=== PATIENT | male | born 1950 | race Caucasian/White ===

== ENCOUNTER 2019-11-10 08:20 | Outpatient (CLI) | payer MEDICARE, SELFPAY ==
[2019-11-10 09:05] LABS: Thyroid Stimulating Hormone 2.03 uIU/mL (0.27-4.20)
== END 2019-11-10 08:21 | disposition home or self-care (01) ==
LOC: LAB 08:24
PROVIDERS: Family Provider Internal Medicine; PCP Internal Medicine; Visit Provider Internal Medicine
DX: E03.9 Hypothyroidism, unspecified (principal)
CPT/HCPCS: 84443

== ENCOUNTER → 2021-02-05 15:20 | Outpatient (BNVA) | payer MEDICARE, SELFPAY | PROVIDERS: Family Provider Internal Medicine; PCP Internal Medicine; Visit Provider Internal Medicine | DX: I10 Essential (primary) hypertension (principal); E78.5 Hyperlipidemia, unspecified; E03.9 Hypothyroidism, unspecified; R61 Generalized hyperhidrosis | CPT/HCPCS: 80053; 80061; 83036; 84443 ==

== ENCOUNTER 2021-02-18 15:15 | Outpatient (CLI) | payer MEDICARE, SELFPAY ==
[2021-02-18 16:35] VITALS: BP 147/87; PULSE 125; RESP 20; TEMP 36.6; O2SAT 95
[2021-02-18 18:10] VITALS: BP 130/69; PULSE 98; RESP 16; O2SAT 94
--- NOTE | 2021-02-28 13:39 | DCPLANNER ---
manager relocation had message that patient received the monoclonal antibody infusion. manager relocation called patient to check on patient after he received the infusion. Patient stated that before the infusion that he felt good, he really did not have any symptoms. Patient did say that he felt really weak, but he did not have a fever, he did not have a cough and did not have a lot of symptoms. Patient stated that after the infusion, he is doing really good.
== END 2021-02-18 18:00 | disposition home or self-care (01) ==
LOC: OPS 07-15 12:36
PROVIDERS: PCP Internal Medicine; Visit Provider Nurse Practitioner Family
DX: U07.1 COVID-19 (principal)
CPT/HCPCS: 87426; 96365

== ENCOUNTER 2021-09-12 14:21 | Outpatient (CLI) | payer MEDICARE, SELFPAY ==
--- NOTE | 2021-09-12 14:30 | USCV_ITS ---
Liz Duarte Age: 71 Gender: M : 1950 Exam Date: 09/12/2021 14:40 Ordering Phys: Laz Stein DO Technologist: Tanika Abraham Exam Location: [facility] [place] Indication: NEW SWELLING 1 WEEK HISTORY: Swelling in Lt leg PROCEDURES: Venous duplex imaging was performed in only the left lower extremity. The following venous structures were evaluated: common femoral vein, profunda vein, proximal portion of the greater saphenous vein, superficial femoral vein, and the popliteal vein. In addition, the posterior tibial and peroneal trunk were evaluated. Serial compression, augmentation maneuvers, and spectral Doppler flow evaluation were performed. FINDINGS: Normal 2-D Doppler and augmentation and compressibility throughout the lower extremity venous structures. Additional imaging through the proximal calf veins also reveals no thrombus. Limited evaluation of the greater saphenous vein is patent with no thrombus.. CONCLUSIONS No evidence of left lower extremity DVT. PRELIM TO DR. GARCIA'S OFFICE AT TIME OF EXAM. LEFT MESSAGE ON NURSES VOICE MAIL. José Miguel Ford MD (Electronically Signed) Final Date: 12 September 2021 15:57 S
== END 2021-09-12 14:22 | disposition home or self-care (01) ==
LOC: RAD 14:24
PROVIDERS: PCP Internal Medicine; Visit Provider Family Medicine
DX: M79.89 Other specified soft tissue disorders (principal); R23.8 Other skin changes
CPT/HCPCS: 93971

== ENCOUNTER → 2022-06-02 13:36 | Outpatient (BNVA) | payer MEDICARE, SELFPAY | PROVIDERS: PCP Family Medicine; Visit Provider Family Medicine | DX: I10 Essential (primary) hypertension (principal); E03.9 Hypothyroidism, unspecified; E55.9 Vitamin D deficiency, unspecified; R73.9 Hyperglycemia, unspecified | CPT/HCPCS: 80053; 82306; 83036; 84443 ==

== ENCOUNTER → 2023-01-01 10:34 | Outpatient (BNVA) | payer MEDICARE, SELFPAY | PROVIDERS: PCP Family Medicine; Visit Provider Family Medicine | DX: E11.9 Type 2 diabetes mellitus without complications (principal); R53.83 Other fatigue; T14.8XXA Other injury of unspecified body region, initial encounter; E03.9 Hypothyroidism, unspecified; W57.XXXA Bitten or stung by nonvenomous insect and other nonvenomous arthropods, initial encounter | CPT/HCPCS: 80053; 80061; 82043; 83036; 84443; 86618; 86666; 86757 ==

== ENCOUNTER → 2023-01-23 13:09 | Outpatient (BNVA) | payer MEDICARE, SELFPAY | PROVIDERS: PCP Family Medicine; Visit Provider Family Medicine | DX: E11.9 Type 2 diabetes mellitus without complications (principal) | CPT/HCPCS: 82043 ==

== ENCOUNTER → 2023-04-07 08:39 | Outpatient (BNVA) | payer MEDICARE, SELFPAY | PROVIDERS: PCP Family Medicine; Visit Provider Nurse Practitioner Family | DX: L57.8 Other skin changes due to chronic exposure to nonionizing radiation (principal); D22.61 Melanocytic nevi of right upper limb, including shoulder; L57.0 Actinic keratosis | CPT/HCPCS: 17000; 99213 ==

== ENCOUNTER → 2023-04-24 11:39 | Outpatient (BNVA) | payer MEDICARE, SELFPAY | PROVIDERS: PCP Family Medicine; Visit Provider Family Medicine | DX: E11.9 Type 2 diabetes mellitus without complications (principal) | CPT/HCPCS: 83036 ==

== ENCOUNTER → 2023-08-11 15:20 | Outpatient (BNVA) | payer MEDICARE, SELFPAY | PROVIDERS: PCP Family Medicine; Visit Provider Family Medicine | DX: R10.9 Unspecified abdominal pain (principal) | CPT/HCPCS: 81000 ==

== ENCOUNTER → 2023-09-08 12:23 | Outpatient (BNVA) | payer MEDICARE, SELFPAY | PROVIDERS: PCP Family Medicine; Visit Provider Family Medicine | DX: E55.9 Vitamin D deficiency, unspecified (principal); E11.9 Type 2 diabetes mellitus without complications; E03.9 Hypothyroidism, unspecified; R79.89 Other specified abnormal findings of blood chemistry | CPT/HCPCS: 80053; 80061; 82306; 82607; 83036; 84443 ==

== ENCOUNTER → 2023-10-06 09:39 | Outpatient (BNVA) | payer MEDICARE, SELFPAY | PROVIDERS: PCP Family Medicine; Visit Provider Nurse Practitioner Family | DX: L57.0 Actinic keratosis (principal); L57.8 Other skin changes due to chronic exposure to nonionizing radiation; D22.61 Melanocytic nevi of right upper limb, including shoulder; L81.4 Other melanin hyperpigmentation | CPT/HCPCS: 99214 ==

== ENCOUNTER → 2023-12-09 13:22 | Outpatient (BNVA) | payer MEDICARE, SELFPAY | PROVIDERS: PCP Family Medicine; Visit Provider Family Medicine | DX: E11.9 Type 2 diabetes mellitus without complications (principal) | CPT/HCPCS: 80048; 83036 ==

== ENCOUNTER 2023-12-10 08:27 | Outpatient (CLI) | payer MEDICARE, SELFPAY ==
--- NOTE | 2023-12-10 08:36 | XR_ITS ---
WS: [id number] Exam: XR hip LT 2-3V wo/w pel* [id number] Date/Time of Exam: 12/10/2023 8:36 AM Reason For Exam: left hip pain No acute fracture or dislocation. Mild to moderate degenerative narrowing of the joint compartment. N ormal soft tissues. XR/XR hip LT 2-3V wo/w pel* [id number] IMPRESSION: 1. Degenerative changes. No fracture or dislocation.
== END 2023-12-10 08:28 | disposition home or self-care (01) ==
PROVIDERS: PCP Family Medicine; Visit Provider Family Medicine
DX: M16.12 Unilateral primary osteoarthritis, left hip (principal)
CPT/HCPCS: 73502

== ENCOUNTER 2023-12-18 09:17 | Outpatient (CLI) | payer MEDICARE, SELFPAY ==
--- NOTE | 2023-12-18 09:45 | USCV_ITS ---
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 Resting TBI of 1.21 on the right side and 1.0 on the left side CONCLUSIONS Normal resting ABIs and TBIs bilaterally No significant arterial obstruction, based on the above findings Dr Jace Schmitt MD FAC (Electronically Signed) Final Date: 18 December 2023 19:25 S
== END 2023-12-18 09:18 | disposition home or self-care (01) ==
PROVIDERS: PCP Family Medicine; Visit Provider Family Medicine
DX: I73.9 Peripheral vascular disease, unspecified (principal)
CPT/HCPCS: 93922

== ENCOUNTER 2024-02-15 06:39 | Emergency (ER) | payer MEDICARE, SELFPAY ==
[2024-02-15] VITALS (12 sets, daily range): BP systolic 169–183; BP diastolic 113–117; PULSE 68–93; RESP 16–24; TEMP 36.4; O2SAT 94–98; BMI 46.6
--- NOTE | 2024-02-15 06:48 | ECG_ITS ---
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 Measurements Intervals [place] Rate: 82 P: 88 ME: 204 QRS: -11 QRSD: 118 T: 87 QT: 417 QTc: 488 Interpretive Statements SINUS RHYTHM WITH FREQUENT VENTRICULAR PREMATURE COMPLEXES INDETERMINATE AXIS LOW QRS VOLTAGE IN PRECORDIAL LEADS [QRS DEFLECTION < 1.0 mV IN CHEST LEADS] INCOMPLETE RIGHT BUNDLE BRANCH BLOCK [90+ ms QRS DURATION, TERMINAL R IN V1/V2, 40+ ms S IN I/aVL/V4/V5/V6] ABNORMAL RHYTHM ECG Compared to ECG 05/12/2019 09:55:31 Indeterminate axis now present Incomplete right bundle-branch block now present Left-axis deviation no longer present Intraventricular conduction delay no longer present T-wave abnormality no longer present Electronically Signed On 02-15-2024 14:10:46 CDT by Sesar Rodarte M.D. [id number]
--- NOTE | 2024-02-15 06:50 | XR_ITS ---
WS: [id number] PORTABLE CHEST HISTORY: dyspnea/cough COMPARISON: 05/12/2019 Mildly hyperinflated lungs. Film obtained in lordotic projection. Areas of increased attenuation over the lower lung rocha would probably improve with better technique. Area of pneumonia or developing pneumonitis at the RIGHT lung base is not excluded. No pleural effusion or pneumothorax. Cardiac size: Moderately enlarged silhouette is exacerbated by positioning. Mediastinum/Aorta: Mild atherosclerosis aorta. Osteoarthritic changes at the AC joints and glenohumeral joints. XR/XR chest 1V portable [id number] IMPRESSION: 1. Chest evaluation is limited by lordotic positioning. 2. New area of opacification at the lung bases, RIGHT greater than LEFT. Devel oping pneumonia versus technical limitation. 3. Moderate cardiomegaly.
--- NOTE | 2024-02-15 06:51 | W.ED.CHESTPA ---
HPI - Chest Pain General: Chief Complaint: Chest Pain Stated Complaint: chest pains Time Seen by Provider: 02/15/24 06:50 History of Present Illness: 73-year-old male presents emergency room complaining of bilateral lower chest pain that occurred while at rest. He states he has had chest pain with exertion for some time and cannot really get an duration of time that this been going on. He does have some associated shortness of breath patient is morbidly obese and has a history of diabetes mellitus although he tells me it is well-controlled at this time. He has no known history of coronary disease he is hypertensive he states he took his antihypertensive this morning. Associated symptoms: Deny abdominal pain, dyspnea or fever(s) Review of Systems Const: Denies: fever(s) or chills Card: Reports: chest pain Resp: Denies: dyspnea GI: Denies: abdominal pain : Denies: dysuria, urinary frequency or urinary urgency Musc: Denies: neck pain or back pain Skin/Breast: Denies: rash PFSH ED PFSH: Medical History Morbid obesity Recurrent sinus infections Allergic rhinosinusitis PVD (peripheral vascular disease) HTN (hypertension) Hyperlipidemia Hypothyroidism, unspecified BPH (benign prostatic hyperplasia) Surgical History History of tonsillectomy History of cataract surgery History of hip replacement History of knee replacement procedure of right knee History of knee replacement procedure of left knee History of colonoscopy 01/03/19 - Sigmoid colon polyps Family History Mother , age 93, no problems No problems noted. Father , age 76, tobacco + alcohol No problems noted. 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 Physical Exam Const: GENERAL APPEARANCE: cooperative ORIENTATION/CONSCIOUSNESS: Yes awake, Yes oriented to person, Yes oriented to place and Yes oriented to time HENMT: COMMON NORMALS: normocephalic, atraumatic and hearing grossly normal bilaterally HEAD & SCALP: normocephalic and atraumatic Resp: COMMON NORMALS: normal respiratory effort, No retractions, No use of accessory muscles and clear to auscultation bilaterally AUSCULTATION: clear to auscultation bilaterally Cardio: COMMON NORMALS: regular rate, regular rhythm and No murmurs present (Cardio) RATE: regular rate RHYTHM: regular rhythm GI: COMMON NORMALS: Soft to palpation and No hepatosplenomegaly present AUSCULTATION: Yes normoactive bowel sounds PALPATION: Yes Soft to palpation, No Tenderness to palpation present (GI), No Guarding due to palpation present (GI) and Yes No hepatosplenomegaly present Extremity: COMMON NORMALS: normal to inspection, capillary refill normal, no clubbing, cyanosis or edema, no calf tenderness and no pedal edema Neuro: SENSORIUM/ORIENTATION: Yes oriented to person, Yes oriented to place and Yes oriented to time Skin: COMMON NORMALS: no rashes or lesions noted GENERAL SKIN EXAM: no rashes or lesions noted Course Vital Signs: Vital signs: Vital Signs Temperature 97.6 F 02/15/24 06:45 Pulse Rate 80 02/15/24 10:15 Respiratory Rate 16 02/15/24 08:00 Blood Pressure 169/117 02/15/24 08:00 Pulse Oximetry 94 02/15/24 10:15 Oxygen Delivery Me thod Room Air 02/15/24 08:16 MDM - Chest Pain Medical Decision Making Having atypical chest pain EKG does not show acute changes cardiac enzymes trended negative. Patient does have a small stone. It is questionable the way the CT report reads however he does have isolated hematuria as I believe this does reflect a stone. He has some discomfort in that region as well we will strain his urine gave him pain medications and nausea medicine start him on tamsulosin. Additionally we will set him up for an outpatient Lexiscan sestamibi stress test. Start him on baby aspirin daily and isosorbide mononitrate 30 mg daily. Return if has further problems. He also has some mild hyponatremia but is asymptomatic of this at this time this can be followed up with with his primary care doctor. Lab Data 02/15/24 08:09 02/15/24 08:09 Radiology Impressions Chest X-Ray 02/15/24 06:50 IMPRESSION: 1. Chest evaluation is limited by lordotic positioning. 2. New area of opacification at the lung bases, RIGHT greater than LEFT. Developing pneumonia versus technical limitation. 3. Moderate cardiomegaly. Abdomen/Pelvis CT 02/15/24 09:40 IMPRESSION: 1. Mild RIGHT perinephric stranding with no obstruction of the renal pelvis. Stranding has progressed since the prior study. The ureter is not dilated but in the very distal ureter there is a 2 mm focus which could be a very tiny stone. Correlate for possible pyelonephritis due to the increasing perinephric stranding. 2. Small amount of perinephric stranding around the LEFT kidney with no obstruction. 3. Cholelithiasis without acute cholecystitis. 4. Mild diverticular disease without acute diverticulitis. 5. Mild atherosclerosis aorta. 6. Moderate hiatal hernia. Laboratory Results WBC 13.70 10^3/uL (3.29-11.43) H 02/15/24 08:09 RBC 4.31 10^6/uL (3.85-5.65) 02/15/24 08:09 Hgb 13.30 g/dL (11.27-16.99) 02/15/24 08:09 Hct 39.4 % (37-53) 02/15/24 08:09 MCV 91.4 fl (82-101) 02/15/24 08:09 MCH 30.9 pg (27-33) 02/15/24 08:09 MCHC 33.8 g/dL (30-55) 02/15/24 08:09 RDW 12.3 % (12.1-15.1) 02/15/24 08:09 Plt Count 292 10^3/cmm (157-399) 02/15/24 08:09 MPV 10.5 fL (7.4-10.4) H 02/15/24 08:09 Neut % (Auto) 79.7 % 02/15/24 08:09 Lymph % (Auto) 13.5 % 02/15/24 08:09 Mclean % (Auto) 5.7 % 02/15/24 08:09 Eos % (Auto) 0.4 % 02/15/24 08:09 Baso % (Auto) 0.3 % 02/15/24 08:09 Neut # (Auto) 10.92 10^3/uL (1.8-7.7) H 02/15/24 08:09 Lymph # (Auto) 1.9 10^3/uL (0.8-4.8) 02/15/24 08:09 Mclean # (Auto) 0.8 10^3/uL (0.2-0.9) 02/15/24 08:09 Eos # (Auto) 0.1 10^3/uL (0.0-0.8) 02/15/24 08:09 Baso # (Auto) 0.0 10^3/uL (0.0-0.1) 02/15/24 08:09 Nucleated RBC % (auto) 0 % 02/15/24 08:09 Nucleated RBCs # 0.0 /100WBC 02/15/24 08:09 Sodium 127 mmol/L (136-145) L 02/15/24 08:09 Potassium 3.5 mmol/L (3.5-5.1) 02/15/24 08:09 Chloride 90 mmol/L (98-107) L 02/15/24 08:09 Carbon Dioxide 21 mmol/L (22-29) L 02/15/24 08:09 Anion Gap 19.5 (5-19) H 02/15/24 08:09 BUN 10 mg/dL (8-23) 02/15/24 08:09 Creatinine 0.6 mg/dL (0.7-1.2) L 02/15/24 08:09 GFR Calculation Not Reportable 02/15/24 08:09 Glucose 213 mg/dL (65-115) H 02/15/24 08:09 Calculated Osmolality 269 mOsm/kg (285-295) L 02/15/24 08:09 Calcium 9.1 mg/dL (8.5-10.5) 02/15/24 08:09 Total Bilirubin 0.4 mg/dL (0.15-1.2) 02/15/24 08:09 AST 19 U/L (0-40) 02/15/24 08:09 ALT 19 U/L (0-41) 02/15/24 08:09 Alkaline Phosphatase 100 U/L (40-130) 02/15/24 08:09 Troponin T Baseline 17 ng/L (0-15) H 02/15/24 08:09 Troponin T 120 Minute 18.74 ng/L (0-15) H 02/15/24 10:55 Delta Troponin T 1.74 ABS# (0-10) 02/15/24 10:55 Total Protein 6.8 g/dL (6.6-8.7) 02/15/24 08:09 Albumin 4.1 g/dL (3.5-5.2) 02/15/24 08:09 Globulin 2.7 g/dL (1.3-4.6) 02/15/24 08:09 Urine Color Yellow (Yellow) 02/15/24 07:27 Urine Appearance Clear (CLEAR) 02/15/24 07:27 Urine pH 5.5 (5-7) 02/15/24 07:27 Ur Specific [place] 1.016 (1.005-1.030) 02/15/24 07:27 Urine Protein Negative (Negative) 02/15/24 07:27 Urine Glucose (UA) Negative (Normal) 02/15/24 07:27 Urine Ketones Negative (Negative) 02/15/24 07:27 Urine Blood 1+ (Negative) A 02/15/24 07:27 Urine Nitrate Negative (Negative) 02/15/24 07:27 Urine Bilirubin Negative (Negative) 02/15/24 07:27 Urine Urobilinogen 0.2 mg/dL (Negative) 02/15/24 07:27 Ur Leukocyte Esterase Negative (Negative) 02/15/24 07:27 Urine RBC 11-20 /hpf (0-2) H 02/15/24 07:27 Urine WBC 0-5 /hpf (0-5) 02/15/24 07:27 Ur Squamous Epith Cells 0-5 /hpf (0-5) 02/15/24 07:27 Amorphous Sediment Not Reportable 02/15/24 07:27 Urine Bacteria None seen /hpf (NONE) 02/15/24 07:27 Hyaline Casts 0-4 /lpf H 02/15/24 07:27 All radiology interpretation(s) finalized by discharge EKG Data EKG 1: EKG interpretation date: 02/15/24 EKG interpretation time: 06:48 Interpretation: Sinus rhythm with PVCs. Rate 82 [place] interval 204. Incomplete bundle branch block no evidence of acute ST elevations Discharge Plan Discharge Patient Disposition: Home Clinical Impression: Atypical chest pain, Right nephrolithiasis, Hyponatremia Condition: Stable Prescriptions: New promethazine 25 mg tablet 25 mg PO Q6H PRN (Reason: nausea and vomiting) Qty: 20 0RF tamsulosin 0.4 mg capsule 0.4 mg PO DAILY Qty: 14 0RF aspirin 81 mg tablet,delayed release (DR/EC) 81 mg PO DAILY Qty: 30 0RF isosorbide mononitrate 30 mg tablet extended release 24 hr 30 mg PO DAILY Qty: 30 0RF No Action multivitamin Tablet 1 tab PO DAILY Contrave 8-90 mg tablet extended release 2 tab PO BID fexofenadine [Elina Allergy] 60 mg tablet 240 mg PO DAILY tamsulosin 0.4 mg capsule 0.4 mg PO DAILY Qty: 90 3RF Colace 100 mg Capsule 300 mg PO DAILY Afrin (oxymetazoline) 0.05 % [place],Non-Aerosol 2 spray INTRANASAL BEDTIME PRN (Reason: Congestion) Vitamin D3 125 mcg (5,000 unit) Tablet 125 mcg PO DAILY berberine chloride 500 mg Capsule 500 mg PO DAILY vitamin B complex Tablet 1 tab PO DAILY vitamin E 268 mg (400 unit) Capsule 268 mg PO DAILY levothyroxine 175 mcg tablet 175 mcg PO DAILY spironolacton-hydrochlorothiaz 25-25 mg tablet 2 tab PO DAILY pentoxifylline 400 mg tablet extended release 400 mg PO TID montelukast 10 mg tablet 10 mg PO DAILY levocetirizine 5 mg tablet 5 mg PO DAILY Discharge Orders: Discharge ED (Routine); Ordered 02/15/24 Ordered By: Lamonte Covarrubias Referrals: Rubi Weathers MD [Primary Care Provider] - Discharge Diet: Usual diet Discharge Activity: Limit activity as instructed Patient Instructions: Opioid Safety, Pain Management Activity Restrictions/Additional Instructions: Thank you for choosing [facility] for your healthcare needs today. It is very important that you follow up as instructed or that you return to the Emergency Department should you have concerns or if your condition changes or worsens in any way. You were seen in the emergency room with complaint of chest discomfort and flank pain. Your cardiac enzymes are negative and EKG did not show any acute changes. Urine showed blood in the urine CT shows a right distal ureteral stone. Recommend you strain your urine to evaluate for kidney stone. Will have you strain your urine to start on tamsulosin pain medications and nausea medicines. Additionally case finishing machine adjuster will make arrangements for you to have a follow-up cardiac stress test. Coding Level of Care Code ED Medical Sales Associate for Prachi Asher
[2024-02-15] MEDS: aspirin 81 mg Chew Tablet 324 MG PO (07:28)
[2024-02-15 07:43] LABS: Charge for UA Resulting for Rev
[2024-02-15 08:34] LABS: Basophils % 0.3 %; Eosinophils # 0.1 10^3/uL (0.0-0.8); Eosinophils % 0.4 %; Hematocrit 39.4 % (37-53); Lymphocytes # 1.9 10^3/uL (0.8-4.8); Lymphocytes % 13.5 %; Mean Corpuscular HGB Conc 33.8 g/dL (30-55); Mean Corpuscular Hemoglobin 30.9 pg (27-33); Mean Corpuscular Volume 91.4 fl (82-101); Mean Platelet Volume 10.5 fL (7.4-10.4); Monocytes # 0.8 10^3/uL (0.2-0.9); Monocytes % 5.7 %; Neutrophils # 10.92 10^3/uL (1.8-7.7); Neutrophils % 79.7 %; Nucleated Red Blood Cells % 0 %; Platelet Count 292 10^3/cmm (157-399); Red Blood Count 4.31 10^6/uL (3.85-5.65); Red Cell Distribution Width 12.3 % (12.1-15.1)
--- NOTE | 2024-02-15 08:52 | ECG_ITS ---
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 Measurements Intervals [place] Rate: 72 P: 85 UT: 225 QRS: -15 QRSD: 114 T: 83 QT: 437 QTc: 478 Interpretive Statements SINUS RHYTHM WITH FIRST DEGREE AV BLOCK WITH OCCASIONAL VENTRICULAR PREMATURE COMPLEXES INDETERMINATE AXIS LOW QRS VOLTAGE IN PRECORDIAL LEADS [QRS DEFLECTION < 1.0 mV IN CHEST LEADS] INCOMPLETE RIGHT BUNDLE BRANCH BLOCK [90+ ms QRS DURATION, TERMINAL R IN V1/V2, 40+ ms S IN I/aVL/V4/V5/V6] Compared to ECG 02/15/2024 06:48:11 First degree AV block now present Electronically Signed On 02-15-2024 14:17:01 CDT by Sesar Rodarte M.D. [id number]
[2024-02-15 08:54] LABS: Bilirubin Urine Negative (Negative); Blood Urine 1+ (Negative); Glucose Urine UA Negative (Normal); Ketones Urine Negative (Negative); Leukocyte Esterase Urine Negative (Negative); Nitrate Urine Negative (Negative); Protein Urine Negative (Negative); Specific Gravity, Urine 1.016 (1.005-1.030); Urine Appearance Clear (CLEAR); Urine Color Yellow (Yellow); Urobilinogen Urine 0.2 mg/dL (Negative); pH Urine 5.5 (5-7)
[2024-02-15 08:54] LABS: Alanine Aminotransferase 19 U/L (0-41); Albumin Level 4.1 g/dL (3.5-5.2); Alkaline Phosphatase 100 U/L (40-130); Anion Gap 19.5 (5-19); Aspartate Amino Transferase 19 U/L (0-40); Blood Urea Nitrogen 10 mg/dL (8-23); Calcium 9.1 mg/dL (8.5-10.5); Carbon Dioxide 21 mmol/L (22-29); Chloride 90 mmol/L (98-107); Globulin 2.7 g/dL (1.3-4.6); Glucose 213 mg/dL (65-115); Osmolality Calculated 269 mOsm/kg (285-295); Potassium 3.5 mmol/L (3.5-5.1); Sodium 127 mmol/L (136-145); Total Bilirubin 0.4 mg/dL (0.15-1.2); Total Protein 6.8 g/dL (6.6-8.7)
[2024-02-15 08:55] LABS: Troponin(5th) Baseline 17 ng/L (0-15)
[2024-02-15 08:59] LABS: Creatinine Clr Calc Pharmacy 103.9445
[2024-02-15 09:07] LABS: Bacteria Urine None Seen /hpf; Hyaline Casts Urine 0-4 /lpf; Squamous Epithelial Cell Urine 0-5 /hpf (0-5); WBC Urine 0-5 /hpf (0-5)
--- NOTE | 2024-02-15 09:40 | CT_ITS ---
WS: [id number] CT ABDOMEN AND PELVIS NONCONTRAST HISTORY: flank pain, RIGHT TECHNIQUE: Imaging performed through the abdomen and pelvis. Coronal and sagittal reformats are submi tted. All CT scans at [facility] use at least one of these dose optimization techniques: auto mated exposure control; mA and/or kV adjustment per patient size (includes targeted exams where dose is matched to clinical indication); or iterative reconstruction. DLP: 1487.73 mGy.cm COMPARISON: 01/06/2019 Lower thorax: Mild dependent changes at the lung bases. Micronodule LEFT lung base. No pneumonia. Mod erate cardiomegaly. Moderate hiatal hernia. Liver: Normal liver with hepatic steatosis. Gallbladder: Cholelithiasis without acute cholecystitis. No wall thickening or pericholecystic fluid. Pancreas: Mild fatty replacement. Spleen: Normal. Adrenal glands: Normal. No mass. Right kidney: Mild perinephric stranding. There is no obstruction. No definite renal stones. There ma y be a very tiny 2 mm calcification in the distal LEFT ureter seen only on one image. Not causing any significant hydronephrosis. Left kidney: Mild perinephric stranding. No obstruction. Normal ureter. Aorta: Mild atherosclerosis abdominal aorta with no aneurysm. No free fluid, intraperitoneal air or significant lymphadenopathy. GI tract: Stomach is well distended with fluid. No small bowel obstruction. Appendix is normal. No co katarzyna obstruction or evidence for acute diverticulitis. There are few diverticula scattered throughout the distal colon. Abdominal wall: Negative. No hernia. Pelvis: No free fluid. Minimally distended urinary bladder. Osseous structures: Advanced degenerative spondylitic changes throughout the lumbar spine. L4 anterol isthesis by 5 mm. Prior RIGHT hip arthroplasty. CT/CT kidney stone [id number] IMPRESSION: 1. Mild RIGHT perinephric stranding with no obstruction of the renal pelvis. S tranding has progressed since the prior study. The ureter is not dilated but in the very distal ureter there is a 2 mm focus which could be a very tiny stone. Correlate for possible pyelonephritis due to the increasing perinephric strand ing. 2. Small amount of perinephric stranding around the LEFT kidney with no obstru ction. 3. Cholelithiasis without acute cholecystitis. 4. Mild diverticular disease without acute diverticulitis. 5. Mild atherosclerosis aorta. 6. Moderate hiatal hernia.
[2024-02-15 11:24] LABS: Troponin 5 2HR 18.74 ng/L (0-15); Troponin 5 2HR Delta 1.74 ABS# (0-10)
--- NOTE | 2024-02-18 09:32 | DCPLANNER ---
faxed outpatient order to scheduling for er f/u
== END 2024-02-15 12:35 | disposition home or self-care (01) ==
PROVIDERS: Emergency Provider Family Medicine; PCP Family Medicine
DX: R07.89 Other chest pain (principal); N20.0 Calculus of kidney; E87.1 Hypo-osmolality and hyponatremia; I45.10 Unspecified right bundle-branch block; I10 Essential (primary) hypertension; E66.01 Morbid (severe) obesity due to excess calories; Z68.42 Body mass index [BMI] 45.0-49.9, adult
CPT/HCPCS: 36415; 71045; 74176; 80053; 81003; 81015; 84484; 85025; 93005; 99285

== ENCOUNTER → 2024-02-23 13:24 | Outpatient (BNVA) | payer MEDICARE, SELFPAY | PROVIDERS: PCP Family Medicine; Visit Provider Family Medicine | DX: E11.9 Type 2 diabetes mellitus without complications (principal); R31.9 Hematuria, unspecified | CPT/HCPCS: 80048; 81003; 83036 ==

== ENCOUNTER 2024-03-03 09:11 | Outpatient (CLI) | payer MEDICARE, SELFPAY ==
--- NOTE | 2024-03-03 09:40 | ECG_ITS ---
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 Interpretive Statements NAME OF STUDY: LEXISCAN SESTAMIBI STRESS TEST INDICATION: [Atypical Chest Pain, ] Procedure: At the baseline, the blood pressure was 120/86 mmHg with a heart rate of 146 bpm. The electrocardiogram showed normal sinus rhythm, incomplete right bundle branch block, with normal ST and T's. The Lexiscan was infused over a period of 20 seconds. A total of 0.4 mg of Lexiscan was infused. The stress phase was continued for a total of 5 minutes. Heart rate was at the end of stress phase was 67 bpm and a blood pressure of 108/79 mmHg. The EKG at the peak infusion revealed normal sinus rhythm with no significant ST-T wave changes. Sestamibi was injected 20 seconds after the Lexiscan infusion. Blood pressure at the end of recovery phase was 112/75 mmHg with a heart rate of 66 bpm. Conclusion: 1. Normal EKG response to Lexiscan infusion 2. No Lexiscan induced chest pain or cardiac arrhythmia. 3. Normal blood pressure and heart rate response. 4. Sestamibi/sestamibi perfusion scan pending; see separate report. Electronically Signed On 03-05-2024 9:50:43 CDT by Fernando Kramer M.D. [id number]
[2024-03-03 09:41] VITALS: BMI 49.5
[2024-03-03] MEDS: regadenoson 0.4 Mg/5 ml Syringe IVP (10:39)
[2024-03-03 10:57] VITALS: BP 111/79; PULSE 63
== END 2024-03-03 09:12 | disposition home or self-care (01) ==
PROVIDERS: PCP Family Medicine; Visit Provider Family Medicine
DX: R07.89 Other chest pain (principal)
CPT/HCPCS: 36415; 78452; 93017; 96374; A9500; J2785

== ENCOUNTER 2024-03-07 06:51 | Outpatient (CLI) | payer MEDICARE, SELFPAY ==
[2024-03-07 06:57] VITALS: BMI 49.5
--- NOTE | 2024-03-07 07:01 | ECG_ITS ---
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 Interpretive Statements LEXISCAN: Procedure: At the baseline, the blood pressure was 101/69 mmHg with a heart rate of 64 bpm. The electrocardiogram showed normal sinus rhythm, incomplete right bundle branch block with normal ST and T's. The Lexiscan was infused over a period of 20 seconds. A total of 0.4 mg of Lexiscan was infused. The stress phase was continued for a total of 5 minutes. Heart rate was at the end of stress phase was 66 bpm and a blood pressure of 95/66 mmHg. The EKG at the peak infusion revealed normal sinus rhythm with no significant ST-T wave changes. Sestamibi was injected 20 seconds after the Lexiscan infusion. Blood pressure at the end of recovery phase was 103/70 mmHg with a heart rate of 67 bpm. Conclusion: 1. Normal EKG response to Lexiscan infusion 2. No Lexiscan induced chest pain or cardiac arrhythmia. 3. Normal blood pressure and heart rate response. 4. Sestamibi/sestamibi perfusion scan pending; see separate report. Electronically Signed On 03-11-2024 19:33:46 CDT by Fernando Kramer M.D. [id number]
--- NOTE | 2024-03-07 07:02 | NMCV_ITS ---
NM sharon perf SPECT r/s* [id number] Duarte Hill Age: 74 Gender: M : 1950 Exam Date: 03/07/2024 07:30 Ordering Phys: Lamonte Covarrubias DO Technologist: FIDEL Beatty Exam Location: [facility] Indications: Atypical chest pain STRESS TEST Please see separate stress test report in [facility] for full findings IMAGE PROTOCOL Rest/Stress 1 Lexiscan Day Radiopharmaceutical Dose (mCi) Administration Site Administered by Rest: Tc-99m 10.8 IV FIDEL Beatty Sestamibi Stress:Tc-99m 31.7 IV FIDEL Beatty Sestamibi Rest: 03/07/2024 60 Discovery 630 Stress: 03/07/2024 30 Discovery 630 0.4mg Lexiscan. Images obtained in supine and prone position. SPECT RESULTS Technical Quality: Good Raw Data Analysis: Soft tissue attenuation Image Corrections: No attenuation or motion correction applied Summed Stress Score: 23 Summed Rest Score: 12 Summed Difference Score: 12 PERFUSION FINDINGS There is a large area of mostly fixed perfusion defect noted in the inferior wall. This is consistent with large sized prior infarct with some dai-infarct ischemia in RCA territory. There is a large sized partially reversible perfusion defect noted in anterior, apical and inferolateral michael. Improvement seen on prone imaging. Large areas of prior infarct with dai-infarct ischemia vs attenuation artifact. Clinical correlation required. FUNCTIONAL RESULTS (calculated via Gated SPECT) Stress Image LV EF (%): 42 Stress EDV (mL):209 TID: 1.2 Stress ESV (mL):121 FUNCTIONAL FINDINGS: LV systolic function is mildly reduced with EF of 42%. TID ratio is elevated at 1.2 IMPRESSIONS 1. Abnormal myocardial perfusion imaging with large area of prior infarct with some dai-infarct ischemia seen in the RCA territory. 2. Large area of prior infarct with dai-infarct ischemia seen in apical, anterior and inferolateral michael. Attenuation artifact cannot be ruled out. Clinical correlation is required. 3. LV systolic function is mildly reduced with EF of 42%. TID ratio is elevated. This may represent subendocardial ischemia / multivessel coronary artery disease. Fernando Kramer MD (Electronically Signed) Final Date: 07 March 2024 10:42 S
[2024-03-07] MEDS: regadenoson 0.4 Mg/5 ml Syringe IVP (07:05)
[2024-03-07 07:30] VITALS: BP 101/69; PULSE 67
== END 2024-03-07 06:52 | disposition home or self-care (01) ==
PROVIDERS: PCP Family Medicine; Visit Provider Family Medicine
DX: R07.89 Other chest pain (principal); R94.39 Abnormal result of other cardiovascular function study
CPT/HCPCS: 78452; 93017; 96374; A9500; J2785

== ENCOUNTER → 2024-04-07 08:17 | Outpatient (BNVA) | payer MEDICARE, SELFPAY | PROVIDERS: PCP Family Medicine; Visit Provider Nurse Practitioner Family | DX: D22.61 Melanocytic nevi of right upper limb, including shoulder (principal); L57.0 Actinic keratosis; T14.8XXA Other injury of unspecified body region, initial encounter; X58.XXXA Exposure to other specified factors, initial encounter; L57.8 Other skin changes due to chronic exposure to nonionizing radiation; L81.4 Other melanin hyperpigmentation | CPT/HCPCS: 17000; 99214 ==

== ENCOUNTER → 2024-05-02 14:31 | Outpatient (BNVA) | payer MEDICARE, SELFPAY | PROVIDERS: PCP Family Medicine; Visit Provider Internal Medicine Cardiovascular Disease | DX: R94.39 Abnormal result of other cardiovascular function study (principal); R06.02 Shortness of breath; M79.89 Other specified soft tissue disorders; I10 Essential (primary) hypertension; E78.2 Mixed hyperlipidemia; E11.9 Type 2 diabetes mellitus without complications; E03.9 Hypothyroidism, unspecified; E66.01 Morbid (severe) obesity due to excess calories; Z68.42 Body mass index [BMI] 45.0-49.9, adult; Z87.891 Personal history of nicotine dependence | CPT/HCPCS: 36415; 80048; 83880; 99204 ==

== ENCOUNTER 2024-05-24 10:53 | Emergency (ER) | payer MEDICARE, SELFPAY ==
[2024-05-24] VITALS (7 sets, daily range): BP systolic 148–178; BP diastolic 78–106; PULSE 79–101; RESP 17–20; TEMP 36.7; O2SAT 91–98; BMI 45.1
--- NOTE | 2024-05-24 10:55 | XR_ITS ---
WS: [id number] PORTABLE CHEST HISTORY: chest pain COMPARISON: 02/15/2024 Mild dependent changes at the lung bases. Minimal atelectasis at the lung bases. No pneumonia. Simila r appearance to the prior study. No pleural effusion or pneumothorax. Cardiac size: Mildly enlarged cardiac silhouette. Mediastinum/Aorta: Normal mediastinum. Bilateral osteoarthritic changes at the glenohumeral joints. XR/XR chest 1V portable [id number] IMPRESSION: 1. No pneumonia. 2. Mild dependent changes at the lung bases. 3. Mild cardiomegaly, unchanged.
--- NOTE | 2024-05-24 10:55 | ECG_ITS ---
[facility] Pat Name: Duarte Hill Department: Room: Gender: Male Medical Policy Specialist: : 1950 Requested By: Sharri Atkinson Order Number: [id number] Fredo MD: Jace Schmitt M.D. Measurements Intervals [place] Rate: 93 P: 101 SD: 212 QRS: -43 QRSD: 118 T: 78 QT: 368 QTc: 459 Interpretive Statements Normal sinus rhythm with frequent PVCs LEFT AXIS DEVIATION [QRS AXIS < -30] INCOMPLETE RIGHT BUNDLE BRANCH BLOCK [90+ ms QRS DURATION, TERMINAL R IN V1/V2, 40+ ms S IN I/aVL/V4/V5/V6] Compared to ECG 02/15/2024 08:52:13 Left-axis deviation now present Sinus rhythm no longer present First degree AV block no longer present Indeterminate axis no longer present Electronically Signed On 05-26-2024 21:41:32 MANAGER FINANCIAL REPORTING by Jace Schmitt M.D. [id number]
--- NOTE | 2024-05-24 10:59 | US_ITS ---
WS: [id number] RIGHT UPPER QUADRANT ULTRASOUND HISTORY: ruq pain COMPARISON: None available. Liver: 13.3 cm in length. Normal size liver and echogenicity. No bile duct dilatation or mass. Portal Vein: Normal hepatopetal flow with monophasic waveform. Gallbladder: Nondistended gallbladder with stones. No pericholecystic fluid or gallbladder wall thick ening. There is also small amount of sludge within the gallbladder. CBD: 0.5 cm Pancreas: Poorly visualized. Right kidney: 11.3 cm in length. Normal size and echogenicity. No hydronephrosis or mass. Aorta and IVC: Unremarkable abdominal aorta and IVC. No ascites. Stomach is markedly distended with fluid. US/US gall bladder [id number] IMPRESSION: 1. Cholelithiasis and sludge within the gallbladder. No Cruz sign or pericho lecystic fluid. No bile duct obstruction. 2. Mild hepatic steatosis. 3. Fluid distended stomach.
--- NOTE | 2024-05-24 11:00 | ED_ITS ---
HPI - Abdominal Pain 2 General: Chief Complaint: Abdominal Pain Stated Complaint: Chest pain Time Seen by Provider: 05/24/24 10:56 Source: patient Mode of arrival: ambulatory Limitations: no limitations History of Present Illness: This 74-year-old male states been having right upper quadrant abdominal pain this morning states the pain is sharp pain worse with palpation he is denies any nausea or vomiting. His chief complaint was chest pain but he is currently not having any chest pain at all on his right upper quadrant of his abdomen. Denies any history of any issues with his gallbladder. Denies any shortness of breath. Associated Symptoms: Denies chills, diarrhea, dysuria, fever(s), nausea and vomiting Related Data Home Medications Medication Instructions Recorded Confirmed multivitamin 1 tab PO DAILY 11/04/19 05/24/24 fexofenadine 60 mg tablet (Elina 240 mg PO DAILY 06/02/22 05/24/24 Allergy) berberine chloride 500 mg capsule 500 mg PO DAILY 02/15/24 05/24/24 cholecalciferol (vitamin D3) 125 125 mcg PO DAILY 02/15/24 05/24/24 mcg (5,000 unit) tablet (Vitamin D3) docusate sodium 100 mg capsule 300 mg PO DAILY 02/15/24 05/24/24 (Colace) levocetirizine 5 mg tablet 5 mg PO DAILY 02/15/24 05/24/24 levothyroxine 175 mcg tablet 175 mcg PO DAILY 02/15/24 05/24/24 montelukast 10 mg tablet 10 mg PO DAILY 02/15/24 05/24/24 oxymetazoline 0.05 % nasal spray 2 spray intranasal BEDTIME PRN 02/15/24 05/24/24 (Afrin (oxymetazoline)) Congestion pentoxifylline 400 mg 400 mg PO TID 02/15/24 05/24/24 tablet,extended release spironolactone 25 2 tab PO DAILY 02/15/24 05/24/24 mg-hydrochlorothiazide 25 mg tablet vitamin B complex 1 tab PO DAILY 02/15/24 05/24/24 vitamin E 268 mg (400 unit) capsule 268 mg PO DAILY 02/15/24 05/24/24 promethazine 25 mg tablet 25 mg PO Q6H PRN Nausea 05/24/24 05/24/24 Previous Rx's Medication Instructions Recorded aspirin 81 mg tablet,delayed 81 mg PO DAILY #30 tabs 02/15/24 release isosorbide mononitrate 30 mg 30 mg PO DAILY #30 tabs 02/15/24 tablet,extended release 24 hr tamsulosin 0.4 mg capsule 0.4 mg PO DAILY #90 caps 03/09/24 hydrocodone 5 mg-acetaminophen 325 1 tab PO Q6H PRN pain #14 tabs 05/24/24 mg tablet ondansetron 4 mg disintegrating 4 mg PO Q6H PRN nausea and 05/24/24 tablet vomiting #14 tabs pantoprazole 40 mg tablet,delayed 40 mg PO DAILY #60 tabs 05/24/24 release (Protonix) Allergies Allergy/AdvReac Type Severity Reaction Status Date / Time empagliflozin Allergy Unknown Verified 05/02/24 14:53 [From Jardiance] glipizide Allergy Unknown Verified 05/02/24 14:53 Review of Systems 2 Const: Denies: fever(s), chills, body aches or change in appetite ENMT: Denies: throat pain or dental pain Card: Denies: chest pain Resp: Denies: dyspnea GI: Reports: abdominal pain; Denies: nausea, vomiting or diarrhea : Denies: dysuria Musc: Denies: neck pain or back pain Skin/Breast: Denies: rash Neuro: Denies: headache(s) PFSH ED 2 PFSH: Medical History Morbid obesity Recurrent sinus infections Allergic rhinosinusitis PVD (peripheral vascular disease) HTN (hypertension) Hyperlipidemia Hypothyroidism, unspecified BPH (benign prostatic hyperplasia) Surgical History History of tonsillectomy History of cataract surgery History of hip replacement History of knee replacement procedure of right knee History of knee replacement procedure of left knee History of colonoscopy 01/03/19 - Sigmoid colon polyps Family History Mother , age 93, no problems No problems noted. Father , age 76, tobacco + alcohol No problems noted. 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 Physical Exam 2 Const: COMMON NORMALS: no acute distress, patient oriented x3 and healthy appearing HENMT: COMMON NORMALS: normocephalic and atraumatic HEAD & SCALP: n ormocephalic and atraumatic Eye: COMMON NORMALS: conjunctivae normal CONJUNCTIVA: Yes conjunctivae normal Neck/C-Spine: COMMON NORMALS: full ROM and supple Chest: COMMONS NORMALS: normal inspection of the chest and normal palpation of entire chest wall Resp: COMMON NORMALS: normal respiratory effort, No retractions, No use of accessory muscles and clear to auscultation bilaterally AUSCULTATION: clear to auscultation bilaterally Cardio: COMMON NORMALS: regular rate, regular rhythm and No murmurs present (Cardio) RATE: regular rate RHYTHM: regular rhythm GI: COMMON NORMALS: Normal to inspection, nondistended, normoactive bowel sounds present, Soft to palpation and no masses PALPATION: Yes Soft to palpation and Yes Tenderness to palpation present (GI) Details: RUQ Extremity: COMMON NORMALS: normal to inspection and full ROM Neuro: COMMON NORMALS: patient oriented x3, moves all extremities and no focal motor deficits Psych: COMMON NORMALS: mental status grossly normal, Normal thought process present and cooperative THOUGHT PROCESS: Normal thought process present Skin: COMMON NORMALS: no rashes or lesions noted and no wounds GENERAL SKIN EXAM: no rashes or lesions noted Course 2 Vital Signs: Vital signs: Vital Signs Temperature 98.1 F 05/24/24 10:56 Pulse Rate 79 05/24/24 14:40 Respiratory Rate 20 H 05/24/24 14:40 Blood Pressure 157/78 05/24/24 14:40 Pulse Oximetry 91 05/24/24 14:40 Oxygen Delivery Me thod Room Air 05/24/24 13:30 MDM - Abdominal Pain Medical Decision Making Patient presents with abdominal pain ultrasound CT does show gallstones his pain is much improved here he has no signs of cholecystitis his troponins here are normal as well no signs of ACS he stable for discharge we will get him follow-up with surgery he is return if he has fevers or worsening pains he understands agrees to plan. Medical Records I reviewed the patient's medical records. Lab Data I reviewed the patient's lab results. 05/24/24 12:00 05/24/24 12:00 Labs/Radiology: Radiology Impressions Chest X-Ray 05/24/24 10:55 IMPRESSION: 1. No pneumonia. 2. Mild dependent changes at the lung bases. 3. Mild cardiomegaly, unchanged. Gallbladder Ultrasound 05/24/24 10:59 IMPRESSION: 1. Cholelithiasis and sludge within the gallbladder. No Cruz sign or pericholecystic fluid. No bile duct obstruction. 2. Mild hepatic steatosis. 3. Fluid distended stomach. Abdomen/Pelvis CT 05/24/24 12:20 IMPRESSION: 1. Markedly distended fluid-filled stomach. 2. No GI tract obstruction otherwise. No obstructing lesion at the gastric outlet is identified. 3. No free fluid or free air. 4. Cholelithiasis without acute cholecystitis. No renal obstruction. Laboratory Results WBC 15.92 10^3/uL (3.29-11.43) H 05/24/24 12:00 RBC 4.79 10^6/uL (3.85-5.65) 05/24/24 12:00 Hgb 14.60 g/dL (11.27-16.99) 05/24/24 12:00 Hct 43.0 % (37-53) 05/24/24 12:00 MCV 89.8 fl (82-101) 05/24/24 12:00 MCH 30.5 pg (27-33) 05/24/24 12:00 MCHC 34.0 g/dL (30-55) 05/24/24 12:00 RDW 12.3 % (12.1-15.1) 05/24/24 12:00 Plt Count 294 10^3/cmm (157-399) 05/24/24 12:00 MPV 10.3 fL (7.4-10.4) 05/24/24 12:00 Neut % (Auto) 87.2 % 05/24/24 12:00 Lymph % (Auto) 8.3 % 05/24/24 12:00 Hinds % (Auto) 4.0 % 05/24/24 12:00 Eos % (Auto) 0.0 % 05/24/24 12:00 Baso % (Auto) 0.2 % 05/24/24 12:00 Neut # (Auto) 13.89 10^3/uL (1.8-7.7) H 05/24/24 12:00 Lymph # (Auto) 1.3 10^3/uL (0.8-4.8) 05/24/24 12:00 Hinds # (Auto) 0.6 10^3/uL (0.2-0.9) 05/24/24 12:00 Eos # (Auto) 0.0 10^3/uL (0.0-0.8) 05/24/24 12:00 Baso # (Auto) 0.0 10^3/uL (0.0-0.1) 05/24/24 12:00 Nucleated RBC % (auto) 0 % 05/24/24 12:00 Nucleated RBCs # 0.0 /100WBC 05/24/24 12:00 Sodium 129 mmol/L (136-145) L 05/24/24 12:00 Potassium 3.7 mmol/L (3.5-5.1) 05/24/24 12:00 Chloride 86 mmol/L (98-107) L 05/24/24 12:00 Carbon Dioxide 28 mmol/L (22-29) 05/24/24 12:00 Anion Gap 18.7 (5-19) 05/24/24 12:00 BUN 9 mg/dL (8-23) 05/24/24 12:00 Creatinine 0.6 mg/dL (0.7-1.2) L 05/24/24 12:00 GFR Calculation Not Reportable 05/24/24 12:00 Glucose 204 mg/dL (65-115) H 05/24/24 12:00 Calculated Osmolality 273 mOsm/kg (285-295) L 05/24/24 12:00 Calcium 10.2 mg/dL (8.5-10.5) 05/24/24 12:00 Total Bilirubin 0.5 mg/dL (0.15-1.2) 05/24/24 12:00 AST 20 U/L (0-40) 05/24/24 12:00 ALT 17 U/L (0-41) 05/24/24 12:00 Alkaline Phosphatase 95 U/L (40-130) 05/24/24 12:00 Troponin T Baseline 18 ng/L (0-15) H 05/24/24 12:00 Troponin T 120 Minute 18.33 ng/L (0-15) H 05/24/24 13:45 Delta Troponin T 0.33 ABS# (0-10) 05/24/24 13:45 Total Protein 6.8 g/dL (6.6-8.7) 05/24/24 12:00 Albumin 4.5 g/dL (3.5-5.2) 05/24/24 12:00 Globulin 2.3 g/dL (1.3-4.6) 05/24/24 12:00 Lipase 12 U/L (13-60) L 05/24/24 12:00 All radiology interpretation(s) finalized by discharge EKG Data EKG 1: I personally reviewed and interpreted this EKG as follows: EKG interpretation date: 05/24/24 EKG interpretation time: 11:00 Interpretation: nsr hr [address] elevation qrs 119 qtc 419 EKG 2: I personally reviewed and interpreted this EKG as follows: EKG interpretation date: 05/24/24 EKG interpretation time: 13:24 Interpretation: nsr hr [address] elevation qrs 126 qtc 472 Discharge Plan Discharge Patient Disposition: Home Clinical Impression: Abdominal pain, Gallstones Condition: Stable Prescriptions: New hydrocodone-acetaminophen 5-325 mg tablet 1 tab PO Q6H PRN (Reason: pain) Qty: 14 0RF pantoprazole [Protonix] 40 mg tablet,delayed release (DR/EC) 40 mg PO DAILY Qty: 60 0RF ondansetron 4 mg tablet,disintegrating 4 mg PO Q6H PRN (Reason: nausea and vomiting) Qty: 14 0RF No Action multivitamin Tablet 1 tab PO DAILY fexofenadine [Elina Allergy] 60 mg tablet 240 mg PO DAILY tamsulosin 0.4 mg capsule 0.4 mg PO DAILY Qty: 90 3RF docusate sodium [Colace] 100 mg Capsule 300 mg PO DAILY oxymetazoline [Afrin (oxymetazoline)] 0.05 % [place],Non-Aerosol 2 spray INTRANASAL BEDTIME PRN (Reason: Congestion) cholecalciferol (vitamin D3) [Vitamin D3] 125 mcg (5,000 unit) Tablet 125 mcg PO DAILY berberine chloride 500 mg Capsule 500 mg PO DAILY vitamin B complex Tablet 1 tab PO DAILY vitamin E 268 mg (400 unit) Capsule 268 mg PO DAILY levothyroxine 175 mcg tablet 175 mcg PO DAILY spironolacton-hydrochlorothiaz 25-25 mg tablet 2 tab PO DAILY pentoxifylline 400 mg tablet extended release 400 mg PO TID montelukast 10 mg tablet 10 mg PO DAILY levocetirizine 5 mg tablet 5 mg PO DAILY aspirin 81 mg tablet,delayed release (DR/EC) 81 mg PO DAILY Qty: 30 0RF isosorbide mononitrate 30 mg tablet extended release 24 hr 30 mg PO DAILY Qty: 30 0RF promethazine 25 mg tablet 25 mg PO Q6H PRN (Reason: Nausea) Discharge Orders: Discharge ED (Routine); Ordered 05/24/24 Ordered By: Crystal Velasquez Referrals: Kane Cosme DO [Physician] - 4-7 days Rubi Weathers MD [Primary Care Provider] - Discharge Diet: Advance as tolerated Discharge Activity: Resume usual activity Patient Instructions: Gallstones (ED), Abdominal Pain (ED), Opioid Safety Coding Level of Care Code ED Industry Consultant for Prachi Asher
[2024-05-24] MEDS: ondansetron 2 mg/ML SDV 2 mL 4 MG IVP (11:58)
[2024-05-24] MEDS: morphine 4 mg/mL SDV 1 mL IVP (12:00)
[2024-05-24 12:18] LABS: Basophils % 0.2 %; Lymphocytes # 1.3 10^3/uL (0.8-4.8); Lymphocytes % 8.3 %; Mean Corpuscular Hemoglobin 30.5 pg (27-33); Mean Corpuscular Volume 89.8 fl (82-101); Mean Platelet Volume 10.3 fL (7.4-10.4); Monocytes # 0.6 10^3/uL (0.2-0.9); Neutrophils # 13.89 10^3/uL (1.8-7.7); Neutrophils % 87.2 %; Nucleated Red Blood Cells % 0 %; Platelet Count 294 10^3/cmm (157-399); Red Blood Count 4.79 10^6/uL (3.85-5.65); Red Cell Distribution Width 12.3 % (12.1-15.1); White Blood Count 15.92 10^3/uL (3.29-11.43)
--- NOTE | 2024-05-24 12:20 | CT_ITS ---
WS: [id number] CT ABDOMEN AND PELVIS WITH CONTRAST HISTORY: abd pain TECHNIQUE: Imaging performed of the abdomen and pelvis with IV contrast. Single phase imaging of the abdomen. Coronal and sagittal reformats are submitted. All CT scans at [facility] use at [facility] one of these dose optimization techniques: automated exposure control; mA and/or kV adjustment per patient size (includes targeted exams where dose is matched to clinical indication); or iterative re construction. IV CONTRAST: Omnipaque 350; 100 mL IV. Oral contrast: No DLP: 1175.93 mGy.cm COMPARISON: 02/15/2024 Lower thorax: Mild tree-in-bud airspace disease at the medial LEFT lung base. Heart is normal size. S mall hiatal hernia. Liver/biliary system: Normal size with no intrahepatic dilatation. Gallbladder: Normally distended gallbladder with stones. No adjacent inflammation. Normal common bile duct. Pancreas: Normal size pancreas and pancreatic duct. No adjacent inflammation. Spleen: Normal size spleen. No mass or infarct. Adrenal glands: Normal. Right kidney: Normal size kidney. No obstruction. Small amount of fluid or tiny cortical cyst from th e lower pole. Left kidney: Normal. Aorta: Mild atherosclerosis with no aneurysm. Lymphadenopathy: None. Free fluid: None. GI tract: Stomach is markedly distended with fluid. No small bowel obstruction. No significant consti pation. Normal appendix. Abdominal wall: Unremarkable abdominal wall. No hernia. Pelvis: No free fluid or adenopathy within the pelvis. Prostate gland contains central calcifications . Bones: Marked increase in the lumbar lordosis. Advanced degenerative disc disease. RIGHT hip arthropl asty. CT/CT abdomen pelvis w con* [id number] IMPRESSION: 1. Markedly distended fluid-filled stomach. 2. No GI tract obstruction otherwise. No obstructing lesion at the gastric out let is identified. 3. No free fluid or free air. 4. Cholelithiasis without acute cholecystitis. No renal obstruction.
[2024-05-24 12:33] LABS: Alanine Aminotransferase 17 U/L (0-41); Albumin Level 4.5 g/dL (3.5-5.2); Alkaline Phosphatase 95 U/L (40-130); Aspartate Amino Transferase 20 U/L (0-40); Blood Urea Nitrogen 9 mg/dL (8-23); Calcium 10.2 mg/dL (8.5-10.5); Carbon Dioxide 28 mmol/L (22-29); Chloride 86 mmol/L (98-107); Globulin 2.3 g/dL (1.3-4.6); Glucose 204 mg/dL (65-115); Lipase 12 U/L (13-60); Osmolality Calculated 273 mOsm/kg (285-295); Sodium 129 mmol/L (136-145); Total Bilirubin 0.5 mg/dL (0.15-1.2); Total Protein 6.8 g/dL (6.6-8.7)
[2024-05-24 12:34] LABS: Troponin(5th) Baseline 18 ng/L (0-15)
[2024-05-24 12:36] LABS: Anion Gap 18.7 (5-19); Potassium 3.7 mmol/L (3.5-5.1)
[2024-05-24] MEDS: iohexol 350 mg/mL 500 mL Btl (per mL) IV (12:45)
--- NOTE | 2024-05-24 13:24 | ECG_ITS ---
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
[2024-05-24 14:17] LABS: Troponin 5 2HR 18.33 ng/L (0-15); Troponin 5 2HR Delta 0.33 ABS# (0-10)
--- NOTE | 2024-05-26 09:43 | DCPLANNER ---
messaged gen surg for er f/u
== END 2024-05-24 14:54 | disposition home or self-care (01) ==
PROVIDERS: Physician Assistant; Emergency Provider Emergency Medicine; PCP Family Medicine
DX: K80.20 Calculus of gallbladder without cholecystitis without obstruction (principal)
CPT/HCPCS: 36415; 71045; 74177; 76705; 80053; 83690; 84484; 85025; 93005; 96374; 96375; 99285; J2270; J2405

== ENCOUNTER → 2024-05-27 08:43 | Outpatient (BNVA) | payer MEDICARE, SELFPAY | PROVIDERS: PCP Family Medicine; Referring Provider Emergency Medicine; Visit Provider Surgery | DX: K80.20 Calculus of gallbladder without cholecystitis without obstruction (principal); Z86.0100 Personal history of colon polyps, unspecified | CPT/HCPCS: 99204 ==

== ENCOUNTER 2024-05-31 12:17 | Outpatient (CLI) | payer MEDICARE, SELFPAY ==
--- NOTE | 2024-05-31 12:45 | USCV_ITS ---
Duarte Hill Age: 74 Gender: M : 1950 Exam Date: 05/31/2024 12:45 Ordering Phys: Jace Schmitt MD ([email or web address] Web Leads) Technologist: CT [place] [facility] [place]: sob BP: 100 / 60 HR: 56 Rhythm: Sinus Technical Quality: Technically difficult study MEASUREMENTS (Male / Female) Normal Values 2D ECHO LVOT Diameter 2.1 cm LV Ejection Fraction MOD 4C 54.7 % LV Ejection Fraction MOD 2C 51.3 % LV Ejection Fraction 2C AL 52.6 % LA Diameter 3.7 cm RA Systolic Volume 4C AL 49.5 ml RA Systolic Volume 4C MOD 49.0 ml LA Sys Volume AL 51.2 cm cubed LA Sys Volume Index AL 20.3 cm cubed/m squared Aorta at Sinotubular Diameter 2.6 cm IVC Diameter 2.6 cm M-MODE LA Ao Ratio MM 1.5 AV Cusp Separation MM 1.4 cm DOPPLER AV Peak Velocity 184.0 cm/s LVOT Peak Velocity 90.0 cm/s AV Area Cont Eq vti 1.6 cm squared AV Area Cont Eq pk 1.6 cm squared MV Peak Velocity 111.0 cm/s MV Area PHT 3.3 cm squared Mitral E to A Ratio 1.4 PV Peak Velocity 112.0 cm/s FINDINGS Left Ventricle Severe diffuse hypokinesia of the lateral, inferolateral and anterior segments. LV ejection fraction around 45%, visual.Grade III/IV diastolic dysfunction (restrictive filling pattern), severely elevated filling pressures. Right Ventricle The right ventricle is normal in size and function. Right Atrium The right atrium is normal in size. Left Atrium Mildly increased left atrial size. Mitral Valve Mild mitral annular calcification. Trace to mild mitral valve regurgitation. Aortic Valve Thickened aortic valve. Mild aortic valve calcification. Tricuspid Valve No gross abnormalities noted Pulmonic Valve Pulmonic valve not well visualized. Pericardium Normal pericardium without effusion. Aorta Normal ascending aorta dimension. IVC The inferior vena cava appears normal. CONCLUSIONS Severe diffuse hypokinesia of the lateral, inferolateral and anterior segments. LV ejection fraction around 45%, visual.Grade III/IV diastolic dysfunction (restrictive filling pattern), severely elevated filling pressures. Mildly increased left atrial size. Mild mitral annular calcification. Trace to mild mitral valve regurgitation. Thickened aortic valve. Mild aortic valve calcification. There is no pericardial effusion. There are no intracardiac masses. No similar previous studies are available for comparison Dr Jace Schmitt MD [facility] (Electronically Signed) Final Date: 07 June 2024 21:02 S
== END 2024-05-31 12:18 | disposition home or self-care (01) ==
LOC: RAD 12:18
PROVIDERS: PCP Family Medicine; Visit Provider Internal Medicine Cardiovascular Disease
DX: I50.30 Unspecified diastolic (congestive) heart failure (principal); I35.0 Nonrheumatic aortic (valve) stenosis; I51.89 Other ill-defined heart diseases; R06.09 Other forms of dyspnea
CPT/HCPCS: 93306

== ENCOUNTER → 2024-06-03 10:02 | Outpatient (BNVA) | payer MEDICARE, SELFPAY | PROVIDERS: PCP Family Medicine; Visit Provider Family Medicine | DX: E11.9 Type 2 diabetes mellitus without complications (principal); Z01.818 Encounter for other preprocedural examination | CPT/HCPCS: 80048; 80061; 83036; 85025 ==

== ENCOUNTER 2024-06-08 11:17 | Day surgery (SDC) | payer MEDICARE, SELFPAY ==
[2024-06-08 11:53] VITALS: BP 123/82; PULSE 75; RESP 20; TEMP 36.1; O2SAT 99
[2024-06-08 11:55] VITALS: BMI 45.8
[2024-06-08] MEDS: sodium chloride 0.9% 1,000 ML 30 ML IV (12:07)
--- NOTE | 2024-06-08 12:22 | P.ANESASSM_ITS ---
Pre-Anesthetic Assessment Height/Weight: Height 1.68 m Weight 128.82 kg Temp Pulse Resp BP Pulse Ox O2 Del Method 97 F L 75 20 H 123/82 99 Room Air 06/08/24 11:53 06/08/24 11:53 06/08/24 11:53 06/08/24 11:53 06/08/24 11:53 06/08/24 11:53 Operation Date: 06/08/24 13:00 Proposed Procedures p Colonoscopy- 20065, G0105, Z86.0100(Not Applicable) - Kane Cosme DO Last intake: Intake Last Liquid Date 06/07/24 Last Liquid Time 23:00 Last Solid Date 06/06/24 Last Solid Time 20:00 CV/HEM CONCLUSIONS Severe diffuse hypokinesia of the lateral, inferolateral and anterior segments. LV ejection fraction around 45%, visual.Grade III/IV diastolic dysfunction (restrictive filling pattern), severely elevated filling pressures. Mildly increased left atrial size. Mild mitral annular calcification. Trace to mild mitral valve regurgitation. Thickened aortic valve. Mild aortic valve calcification. There is no pericardial effusion. There are no intracardiac masses. No similar previous studies are available for comparison Medications/Allergies Home Medications Medication Instructions Recorded Confirmed Last Taken Type multivitamin 1 tab PO DAILY 11/04/19 06/06/24 06/07/24 History fexofenadine 60 mg tablet (Elina 240 mg PO DAILY 06/02/22 06/06/24 06/07/24 History Allergy) aspirin 81 mg tablet,delayed 81 mg PO DAILY #30 tabs 02/15/24 06/06/24 06/07/24 Rx release berberine chloride 500 mg capsule 500 mg PO DAILY 02/15/24 06/06/24 06/07/24 History cholecalciferol (vitamin D3) 125 125 mcg PO DAILY 02/15/24 06/06/24 06/07/24 History mcg (5,000 unit) tablet (Vitamin D3) docusate sodium 100 mg capsule 100 mg PO DAILY 02/15/24 06/06/24 06/07/24 History (Colace) levocetirizine 5 mg tablet 5 mg PO DAILY 02/15/24 06/06/24 06/07/24 History levothyroxine 175 mcg tablet 175 mcg PO DAILY 02/15/24 06/06/24 06/08/24 History montelukast 10 mg tablet 10 mg PO DAILY 02/15/24 06/06/24 06/07/24 History oxymetazoline 0.05 % nasal spray 2 spray intranasal BEDTIME PRN 02/15/24 06/06/24 05/24/24 History (Afrin (oxymetazoline)) Congestion pentoxifylline 400 mg 400 mg PO TID 02/15/24 06/06/24 06/07/24 History tablet,extended release spironolactone 25 2 tab PO DAILY 02/15/24 06/06/24 06/08/24 History mg-hydrochlorothiazide 25 mg tablet vitamin B complex 1 tab PO DAILY 02/15/24 06/06/24 06/07/24 History vitamin E 268 mg (400 unit) capsule 268 mg PO DAILY 02/15/24 06/06/24 05/24/24 History tamsulosin 0.4 mg capsule 0.4 mg PO DAILY #90 caps 03/09/24 06/06/24 06/07/24 Rx hydrocodone 5 mg-acetaminophen 325 1 tab PO Q6H PRN pain #14 tabs 05/24/24 06/06/24 Unknown Rx mg tablet ondansetron 4 mg disintegrating 4 mg PO Q6H PRN nausea and 05/24/24 06/06/24 Unknown Rx tablet vomiting #14 tabs pantoprazole 40 mg tablet,delayed 40 mg PO DAILY #60 tabs 05/24/24 06/06/24 06/07/24 Rx release (Protonix) promethazine 25 mg tablet 25 mg PO Q6H PRN Nausea 05/24/24 06/06/24 Unknown History Allergies Allergy/AdvReac Type Severity Reaction Status Date / Time empagliflozin Allergy Unknown Verified 06/06/24 12:22 [From Jardiance] glipizide Allergy Unknown Verified 06/06/24 12:22 Current Medications Generic Name Dose Route Start Last Admin Trade Name Freq PRN Reason Stop Dose Admin Sodium Chloride 1,000 mls @ 30 mls/hr 06/08/24 11:45 06/08/24 12:07 Sodium Chloride 0.9% IV 06/09/24 11:44 30 mls/hr .Q24H CHUY Administration PFSH Anesthesia Medical History Morbid obesity Recurrent sinus infections Allergic rhinosinusitis PVD (peripheral vascular disease) HTN (hypertension) Hyperlipidemia Hypothyroidism, unspecified BPH (benign prostatic hyperplasia) Surgical History History of tonsillectomy History of cataract surgery History of hip replacement History of knee replacement procedure of right knee History of knee replacement procedure of left knee History of colonoscopy 01/03/19 - Sigmoid colon polyps Family History Mother , age 93, no problems No problems noted. Father , age 76, tobacco + alcohol No problems noted. 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
--- NOTE | 2024-06-08 12:27 | ANES.PREANE2 ---
Pre-Anesthetic Assessment Height/Weight: Height 1.68 m Weight 128.82 kg Temp Pulse Resp BP Pulse Ox O2 Del Method 97 F L 75 20 H 123/82 99 Room Air 06/08/24 11:53 06/08/24 11:53 06/08/24 11:53 06/08/24 11:53 06/08/24 11:53 06/08/24 11:53 Operation Date: 06/08/24 13:00 Proposed Procedures p Colonoscopy- 93932, G0105, Z86.0100(Not Applicable) - Kane Cosme DO Last intake: Intake Last Liquid Date 06/07/24 Last Liquid Time 23:00 Last Solid Date 06/06/24 Last Solid Time 20:00 Social No alcohol and No tobacco Exam alert, oriented x 3, clear to auscultation bilaterally and regular rate & rhythm CV/HEM Hypertension and Myocardial Infarction States he's able to walk all around [employer] 03/05/2024 sestamibi test 1. Normal EKG response to Lexiscan infusion 2. No Lexiscan induced chest pain or cardiac arrhythmia. 3. Normal blood pressure and heart rate response. 4. Sestamibi/sestamibi perfusion scan pending; see separate report. Echo CONCLUSIONS Severe diffuse hypokinesia of the lateral, inferolateral and anterior segments. LV ejection fraction around 45%, visual.Grade III/IV diastolic dysfunction (restrictive filling pattern), severely elevated filling pressures. Mildly increased left atrial size. Mild mitral annular calcification. Trace to mild mitral valve regurgitation. Thickened aortic valve. Mild aortic valve calcification. There is no pericardial effusion. There are no intracardiac masses. No similar previous studies are available for comparison Echo 2023 CONCLUSIONS Severe diffuse hypokinesia of the lateral, inferolateral and anterior segments. LV ejection fraction around 45%, visual.Grade III/IV diastolic dysfunction (restrictive filling pattern), severely elevated filling pressures. Mildly increased left atrial size. Mild mitral annular calcification. Trace to mild mitral valve regurgitation. Thickened aortic valve. Mild aortic valve calcification. There is no pericardial effusion. There are no intracardiac masses. No similar previous studies are available for comparison Metabolic Diabetes Mellitus, Morbid Obesity and Thyroid Disease Anesthetic Plan ASA status: 4 Other Pertinent Information Had a discussion with Dr. Oskar MD regarding patient suitability for colonoscopy given patient's functional status + perfusion + echo results, without yet having had the recommended cath performed. Patient was ultimately determined very high risk with his history and echo results, so decision was made to postpone patient's procedure until cath has been completed. Discussed this reasoning with patient and answered all questions. Medications/Allergies Home Medications Medication Instructions Recorded Confirmed Last Taken Type multivitamin 1 tab PO DAILY 11/04/19 06/06/24 06/07/24 History fexofenadine 60 mg tablet (Elina 240 mg PO DAILY 06/02/22 06/06/24 06/07/24 History Allergy) aspirin 81 mg tablet,delayed 81 mg PO DAILY #30 tabs 02/15/24 06/06/24 06/07/24 Rx release berberine chloride 500 mg capsule 500 mg PO DAILY 02/15/24 06/06/24 06/07/24 History cholecalciferol (vitamin D3) 125 125 mcg PO DAILY 02/15/24 06/06/24 06/07/24 History mcg (5,000 unit) tablet (Vitamin D3) docusate sodium 100 mg capsule 100 mg PO DAILY 02/15/24 06/06/24 06/07/24 History (Colace) levocetirizine 5 mg tablet 5 mg PO DAILY 02/15/24 06/06/24 06/07/24 History levothyroxine 175 mcg tablet 175 mcg PO DAILY 02/15/24 06/06/24 06/08/24 History montelukast 10 mg tablet 10 mg PO DAILY 02/15/24 06/06/24 06/07/24 History oxymetazoline 0.05 % nasal spray 2 spray intranasal BEDTIME PRN 02/15/24 06/06/24 05/24/24 History (Afrin (oxymetazoline)) Congestion pentoxifylline 400 mg 400 mg PO TID 02/15/24 06/06/24 06/07/24 History tablet,extended release spironolactone 25 2 tab PO DAILY 02/15/24 06/06/24 06/08/24 History mg-hydrochlorothiazide 25 mg tablet vitamin B complex 1 tab PO DAILY 02/15/24 06/06/24 06/07/24 History vitamin E 268 mg (400 unit) capsule 268 mg PO DAILY 02/15/24 06/06/24 05/24/24 History tamsulosin 0.4 mg capsule 0.4 mg PO DAILY #90 caps 0806/06/24 06/07/24 Rx hydrocodone 5 mg-acetaminophen 325 1 tab PO Q6H PRN pain #14 tabs 05/24/24 06/06/24 Unknown Rx mg tablet ondansetron 4 mg disintegrating 4 mg PO Q6H PRN nausea and 05/24/24 06/06/24 Unknown Rx tablet vomiting #14 tabs pantoprazole 40 mg tablet,delayed 40 mg PO DAILY #60 tabs 05/24/24 06/06/24 06/07/24 Rx release (Protonix) promethazine 25 mg tablet 25 mg PO Q6H PRN Nausea 05/24/24 06/06/24 Unknown History Allergies Allergy/AdvReac Type Severity Reaction Status Date / Time empagliflozin Allergy Unknown Verified 06/06/24 12:22 [From Jardiance] glipizide Allergy Unknown Verified 06/06/24 12:22 Current Medications Generic Name Dose Route Start Last Admin Trade Name Freq PRN Reason Stop Dose Admin Sodium Chloride 1,000 mls @ 30 mls/hr 06/08/24 11:45 06/08/24 12:07 Sodium Chloride 0.9% IV 06/09/24 11:44 30 mls/hr .Q24H CHUY Administration PFSH Anesthesia Medical History Morbid obesity Recurrent sinus infections Allergic rhinosinusitis PVD (peripheral vascular disease) HTN (hypertension) Hyperlipidemia Hypothyroidism, unspecified BPH (benign prostatic hyperplasia) Surgical History History of tonsillectomy History of cataract surgery History of hip replacement History of knee replacement procedure of right knee History of knee replacement procedure of left knee History of colonoscopy 01/03/19 - Sigmoid colon polyps Family History Mother , age 93, no problems No problems noted. Father , age 76, tobacco + alcohol No problems noted. 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
--- NOTE | 2024-06-08 12:43 | PC.NURSE ---
Cancelled per anesthesia due to cardiac concerns.
== END 2024-06-08 12:49 | disposition home or self-care (01) ==
PROVIDERS: PCP Family Medicine; Visit Provider Surgery
PROC: 0DJD8ZZ Inspection of Lower Intestinal Tract, Via Natural or Artificial Opening Endoscopic (ICD-10-PCS; CPT 45378; principal; 2024-06-08 13:00)
DX: Z53.8 Procedure and treatment not carried out for other reasons (principal)
CPT/HCPCS: J7030

== ENCOUNTER → 2024-06-24 08:21 | Outpatient (BNVA) | payer MEDICARE, SELFPAY | PROVIDERS: PCP Family Medicine; Visit Provider Nurse Practitioner Family | DX: R94.39 Abnormal result of other cardiovascular function study (principal); I11.0 Hypertensive heart disease with heart failure; I50.20 Unspecified systolic (congestive) heart failure; E78.5 Hyperlipidemia, unspecified; E11.51 Type 2 diabetes mellitus with diabetic peripheral angiopathy without gangrene; I25.10 Atherosclerotic heart disease of native coronary artery without angina pectoris | CPT/HCPCS: 99214 ==

== ENCOUNTER → 2024-08-02 15:30 | Outpatient (BNVA) | payer MEDICARE, SELFPAY | PROVIDERS: PCP Family Medicine; Visit Provider Family Medicine | DX: R30.0 Dysuria (principal) | CPT/HCPCS: 81003 ==

== ENCOUNTER 2024-08-22 08:59 | Outpatient (CLI) | payer MEDICARE, SELFPAY ==
[2024-08-22 09:38] LABS: Basophils % 0.3 %; Eosinophils # 0.1 10^3/uL (0.0-0.8); Eosinophils % 0.9 %; Hematocrit 45.7 % (37-53); Lymphocytes # 2.6 10^3/uL (0.8-4.8); Lymphocytes % 29.7 %; Mean Corpuscular HGB Conc 32.4 g/dL (30-55); Mean Corpuscular Hemoglobin 31.1 pg (27-33); Mean Platelet Volume 10.8 fL (7.4-10.4); Monocytes # 0.7 10^3/uL (0.2-0.9); Monocytes % 7.8 %; Neutrophils # 5.28 10^3/uL (1.8-7.7); Nucleated Red Blood Cells % 0 %; Platelet Count 242 10^3/cmm (157-399); Red Blood Count 4.76 10^6/uL (3.85-5.65); Red Cell Distribution Width 12.5 % (12.1-15.1); White Blood Count 8.68 10^3/uL (3.29-11.43)
[2024-08-22 09:49] LABS: INR 0.97 (0.83-1.21); Prothrombin Time (Patient) 13.6 Seconds (12.0-15.1)
[2024-08-22 09:55] LABS: Anion Gap 14.2 (5-19); Blood Urea Nitrogen 14 mg/dL (8-23); Calcium 9.5 mg/dL (8.5-10.5); Carbon Dioxide 31 mmol/L (22-29); Chloride 96 mmol/L (98-107); Glucose 143 mg/dL (65-115); Osmolality Calculated 289 mOsm/kg (285-295); Potassium 3.2 mmol/L (3.5-5.1); Sodium 138 mmol/L (136-145)
== END 2024-08-22 09:00 | disposition home or self-care (01) ==
LOC: LAB 09:01
PROVIDERS: PCP Family Medicine; Visit Provider Nurse Practitioner Family
DX: R94.39 Abnormal result of other cardiovascular function study (principal); I73.9 Peripheral vascular disease, unspecified; I10 Essential (primary) hypertension; E78.2 Mixed hyperlipidemia
CPT/HCPCS: 36415; 80048; 85025; 85610; 86850; 86900

== ENCOUNTER → 2024-08-23 10:46 | Outpatient (BNVA) | payer MEDICARE, SELFPAY | PROVIDERS: PCP Family Medicine; Visit Provider Internal Medicine Cardiovascular Disease | DX: R94.39 Abnormal result of other cardiovascular function study (principal); R06.02 Shortness of breath; M79.89 Other specified soft tissue disorders; I10 Essential (primary) hypertension; E78.2 Mixed hyperlipidemia; E11.9 Type 2 diabetes mellitus without complications; E03.9 Hypothyroidism, unspecified; E66.01 Morbid (severe) obesity due to excess calories; Z68.42 Body mass index [BMI] 45.0-49.9, adult | CPT/HCPCS: 99214 ==

== ENCOUNTER 2024-08-26 05:40 | Outpatient (CLI) | payer MEDICARE, SELFPAY ==
[2024-08-26] VITALS (27 sets, daily range): BP systolic 98–151; BP diastolic 59–101; PULSE 56–77; RESP 12–18; TEMP 36.8; O2SAT 91–100; BMI 47.4
--- NOTE | 2024-08-26 06:00 | XACV_ITS ---
Exam Room: 2 Ht: 168 cm Wt: 133 kg BSA: 2.57 m2 Gender: Male : 1950 Any Known Allergies: Other Exam Priority: Routine Procedure(s): Procedure Description: Diagnostic procedure Procedure Description: Left Heart Catheterization Procedure Description: Left ventriculography Procedure Description: Coronary IVUS Procedure Description: Miscellaneous Procedure Description: ACT Procedure Description: Coronary Angiography Procedure Description: Pressure Wire Diagnostic Cath Status: Elective Diagnostic Findings * The left main is an extremely short vessel . No significant stenotic lesions were noted. The left artery descending artery and the circumflex artery were selectively engaged. * The left and descending artery is a medium to large caliber vessel which was selectively engaged. The artery appears to wraparound the LV apex. The ostium of the left left anterior descending artery was found to have around 50 to 60% narrowing in some views. 20 to 30% diffuse irregular narrowing was noted in the mid segment of the artery. The distal artery was found to have minimal intimal regularities. The first and second diagonal branches also were found to have mild diffuse disease in the proximal segment. No other significant stenotic lesions were seen. * The left circumflex artery is a medium to large caliber dominant vessel. The artery was found to have mild diffuse intimal irregularities in the mid and distal segments. No significant stenotic lesions were noted. * The right coronary artery is a small to medium caliber nondominant vessel. Right after the first RV branch, there was high-grade stenosis of around 80 to 90%. Moderate narrowing was noted at the ostium of the first right ventricular branch as well. PCI Status: Elective Interventional Findings * Please note that it was a difficult engagement and there was question whether proximal LAD is significant or not. iFR was performed, because of difficult anatomy and tortuosity of the vessel, normalization of the pressure was not optimal despite of utmost attempt we were not able to normalize well therefore we do not believe that IFR was 0.90 or 0.87 which is insignificant range. We therefore proceeded with IVUS catheterIVUS catheter was advanced after draining down and pullback was performed. Minimal luminal area was recorded around 10.2 mm while plaque burden was 49.4%. Given this value proximal LAD does not appear to be significant. Clinical correlation advised. In the future may can ask for stress test to assess ischemia burden in the LAD territory. Conclusions 1. This 74-year-old white male with multiple risk factors for coronary disease, presented with complaints of chest pain and shortness of breath. He was found to have an LV ejection fraction of 45% by echocardiogram. The Myocardial perfusion imaging revealed moderate areas of fixed and reversible defects involving the distribution of the left and descending artery and the right coronary artery. The LV ejection fraction was 42% by the nuclear scan. Transient ischemic dilatation ratio was found to be elevated to 1.2. In view of his multiple risk factors, abnormal objective findings and the clinical presentation, in order to further evaluate the coronary status, a cardiac catheterization was recommended. 2. Short left main with a 50 to 60% ostial stenosis of the left artery descending artery. Dominant left circumflex artery. High-grade lesion in the nondominant right coronary artery at the takeoff of the first RV branch. Mild diffuse disease in the other vessels. LVEDP of 23 mmHg. LV ejection fraction of around 45%. Mild diffuse hypokinesia left-ventricle. 3. In view of the patient's symptoms and the above findings, in order to further evaluate the functional significance of the proximal LAD lesion, it was thought to be appropriate to consider IFR of the LAD lesion. I reviewed and discussed the cardiac catheterization data with Dr. Null. Dr. Son concurred with this plan and took over further management this patient at this point. Diagnostic RX Recommendation: other cardiac therapy w/o CABG/PCI Ventriculography Ejection Fraction: 45.0 % LV EDP: 23 mmHg Left Ventriculography Findings: * The LV gram was performed the FISHER projection. The LV cavity appears to be mildly dilated. There was mild diffuse hypokinesia left-ventricule. Overall ejection fraction was around 45%. The study was of suboptimal quality. The LVEDP was 23 mmHg. Pressures Phase:Rest AO : 99 / 70 ( 84 ) @ 7:30:00 AM 94 / 64 ( 80 ) @ 7:34:00 AM 118 / 70 ( 90 ) @ 7:43:00 AM 124 / 58 ( 85 ) @ 7:43:00 AM 164 / 75 ( 101 ) @ 7:56:00 AM 117 / 63 ( 82 ) @ 8:14:00 AM 103 / 57 ( 77 ) @ 8:58:00 AM 81 / 59 ( 71 ) @ 9:13:00 AM LV : 120 / 0 / 13 @ 7:41:00 AM 117 / 0 / 12 @ 7:41:00 AM 128 / 10 / 23 @ 7:41:00 AM 127 / 12 / 25 @ 7:42:00 AM 125 / 11 / 25 @ 7:43:00 AM Valves Phase:DefaultPhase AV : 7.0 @ 9:28:17 AM AV Mean Gradient: 16.0 @ 9:28:17 AM Clinical Evaluation EBL: 5mL-10mL Procedural Details Pre-Procedure Time Out. Identified patient by full name and date of as verbalized by the patient/guarantor. Does the consent match the physician's order: Yes. Accurate & Complete Informed Consent: Yes. Inpatient/Outpatient History & Physical on Chart: Yes. If H&P is completed, is and addenduem needed: No; If yes, is the addendum complete: N/A. Visualize and Verify Site with Patient/Guarantor: N/A. Relevant Radiology Images available: Yes. Pre-op teaching completed and patient verbalized understanding. The risks, benefits, and alternatives of sedation and/or procedure were discussed by physician. The patient agrees to continue. Procedure started. Physician arrived. [facility] Clinical Fraility Score: 3: Managing Well. Heat Treating Operator Indications: Worsening Angina. Chest Pain Symptom Assessment: Typical Angina Symptoms. Correct patient, site and procedure confirmed by cath team. Current diagnosis: Chest Pain. PERRLA. Strong, equal hand dining room attendant cafeteria bilaterally. Lungs clear x 5 lobes. IV Site on Arrival: 20 gauge in the left anticubital. IV Fluids: 0.9% NaCl at KVO. 0 mL infused prior to manager cath lab. Pre Procedural Pulses: bilateral dorsalis pedis was 1+. Pre Procedural Pulses: bilateral posterior tibial was 1+. Pre Procedural Pulses: bilateral radial was 3+. Oxygen started at 2liters/min via nasal canula. right groin was prepped with chloroprep then draped in the usual sterile fashion. right radial was prepped with chloroprep then draped in the usual sterile fashion. Baseline sample Acquired. HR: 0 BPM. Current Diagnosis : Chest Pain. Physician scrubbed in. Immediate Pre-Procedure Time Out. Correct Patient: Yes; Correct Procedure: Yes; Correct Site: Yes; Correct Patient Position: Yes; Correct Supplies: Yes; Dried Flammable Prep: Yes; Blood Products Available: N/A;. Lidocaine 1% infiltrated to the right radial. Arterial access obtained. A 5 guyanese Santos catheter in over wire. Multiple views taken of left coronary artery. Catheter redirected to the RCA. Multiple views taken of right coronary artery. Catheter redirected to the LCA. Dr. Null called to review films. Catheter removed over the exchange wire. A 5 guyanese Angled Pig catheter in over wire. EDP Sample taken: LV 117/-1,12; HR: 68 BPM; SpO2: 97%. EDP Sample taken: LV 128/10,23; HR: 67 BPM; SpO2: 99%. LV gram performed in FISHER @ 10 mL/second for a total of 30 mL. EDP Sample taken: LV 127/12,25; HR: 64 BPM; SpO2: 98%. Pullback taken: LV 125/11,25; AO 118/70(90); Mean: 16mmHg, Peak to Peak: 7mmHg, SEP: 17sec/min; HR: 64 BPM; SpO2: 98%. Catheter removed over the exchange wire. Physician scrubbed out. Catheter attached to heparnized Saline flush at KVO to maintain patency. Physician review of cine films. Dr. Null arrived. Dr. Null scrubbed in to perform intervention. Catheter out over the wire. 6 guyanese XB 3 guide catheter was inserted over the wire. ACT drawn. Results 185 seconds. Therapeutic limits - pre-heparin administration 90-150 seconds and monitoring heparin during a vascular procedure >250 seconds. IFR guidewire was advanced through the guide catheter to lesion in the prox LAD. [place] guidewire was advanced through the guide catheter to lesion in the mid Circ. [place] wire out. IFR Results: 0.90. Wire out. Guide catheter out. 6 guyanese JL 3 guide catheter was inserted over the wire. ACT drawn. Results 198 seconds. Therapeutic limits - pre-heparin administration 90-150 seconds and monitoring heparin during a vascular procedure >250 seconds. IFR guidewire was advanced through the guide catheter to lesion in the prox LAD. [place] guidewire was advanced through the guide catheter to lesion in the prox LAD. IVUS catheter inserted OTW and advanced to the LAD. IFR wire out. IVUS measurements obtained. IVUS catheter out OTW. Wire out. Guide catheter out. A TR Band was successful obtaining hemostatsis at the Right Radial artery insertion site. Post Procedure: Pulses reassessed and unchanged. PERRLA. Strong, equal hand dining room attendant cafeteria bilaterally. No VTE prophylaxis required. Medication's Wasted: Other = Fentanyl 50 mcg. Medication's Wasted: Heparin = 2000 units. Medication's Wasted: Nitro = 49.8 mcg. Medication's Wasted: Lidocaine 1% = 18 mL. Total IV fluids: 430 mL. Post-op diagnosis: Non-obstructive CAD. Complications: None. Estimated blood loss: 5mL-10mL. Responsiveness - Normal response to verbal stimuli; alert and oriented, PERRLA. Airway - Unaffected, no intervention required; spontaneous ventilation. Circulation: W/N/L, pulses unchanged. Nausea/Vomiting: No. Procedure completed. Patient transferred by stretcher to CPRU. Vital chart was stopped. Access Site Site: Right Radial artery Sheath Size: 6 Fr Hemostasis Method: TR Band Hemostasis Success: Successful Procedure Medications Start: 7:11 AM Stop: 7:11 AM Medication: Versed Amount: 1 mg Route: I.V. Start: 7:11 AM Stop: 7:11 AM Medication: Fentanyl Amount: 50 mcg Route: I.V. Start: 7:25 AM Stop: 7:25 AM Medication: Verapamil Amount: 5 mg Route: I.A. Start: 7:25 AM Stop: 7:25 AM Medication: Nitrogylcerin Amount: 200 mcg Route: I.A. Start: 7:25 AM Stop: 7:25 AM Medication: 0.9% Saline Amount: 250 ml Route: I.V. bolus Start: 7:28 AM Stop: 7:28 AM Medication: Heparin Amount: 5000 units Route: I.V. Start: 8:08 AM Stop: 8:08 AM Medication: Versed Amount: 1 mg Route: I.V. Start: 8:09 AM Stop: 8:09 AM Medication: Fentanyl Amount: 25 mcg Route: I.V. Start: 8:14 AM Stop: 8:14 AM Medication: Heparin Amount: 5000 units Route: I.V. Start: 8:27 AM Stop: 8:27 AM Medication: Fentanyl Amount: 25 mcg Route: I.V. Start: 8:41 AM Stop: 8:41 AM Medication: Versed 1 mg and Fentanyl 25 mcg Amount: 1 Route: I.V. Start: 8:48 AM Stop: 8:48 AM Medication: Fentanyl Amount: 25 mcg Route: I.V. Start: 8:51 AM Stop: 8:51 AM Medication: Heparin Amount: 4000 units Route: I.V. Start: 9:05 AM Stop: 9:05 AM Medication: Versed Amount: 1 mg Route: I.V. Start: 9:19 AM Stop: 9:19 AM Medication: Fentanyl Amount: 25 mcg Route: I.V. I, the attending physician, have reviewed and verified all procedure medications. Yes, all medications given per verbal order History/Risk Factors Hypertension: Yes Dyslipidemia: Yes Peripheral Arterial Disease (PAD): Yes Myocardial Infarction ([place]): No Obesity: Yes Renal Disease: No Tobacco Use: Never Prior Interventions PCI: No CABG: No Valve Surgery: No Report Signatures Interventional Workflow Finalized by Sivakumar Null MD on 09/08/2024 11:10 PM Diagnostic Workflow Finalized by Dr Jace Schmitt MD [facility] on 08/26/2024 11:13 AM
[2024-08-26] MEDS: diphenhydrAMINE 50 mg Capsule PO (06:20)
[2024-08-26 06:45] LABS: Anion Gap 15.6 (5-19); Blood Urea Nitrogen 12 mg/dL (8-23); Calcium 9.5 mg/dL (8.5-10.5); Carbon Dioxide 28 mmol/L (22-29); Chloride 99 mmol/L (98-107); Glucose 143 mg/dL (65-115); Osmolality Calculated 290 mOsm/kg (285-295); Potassium 3.6 mmol/L (3.5-5.1); Sodium 139 mmol/L (136-145)
--- NOTE | 2024-08-26 06:59 | P.HPUD_ITS ---
Surgery/Procedure H&P Update DATE OF PROCEDURE: August 26, 2024 DATE H&P PERFORMED: 08/23/24 H&P UPDATE INFORMATION: I have reviewed H&P completed within last 30 days, I have examined patient prior to procedure, No changes to prior documentation and Changes to prior documentation as noted here PREOP DIAGNOSIS: ASHD PRIMARY INDICATION FOR PROCEDURE: Abnormal stress test/LV systolic dysfunction PLANNED PROCEDURE: Operation Date: 08/26/24 07:00 Proposed Procedures p Cardiac Catheterization(Left) - Jace Schmitt MD PATIENT REASSESSED PRIOR TO SEDATION, WITH NO CHANGE NOTED: Yes PHYSICAL EXAM: alert, oriented x 3, clear to auscultation bilaterally and regu lar rate & rhythm AIRWAY EVAL/ANESTHESIA PLAN: normal airway, see other exam findings, ASA III, Monitored Anesthesia, Local Anesthesia, Risks, benefits & alternatives of sedati on and/or procedure discussed and Patient agrees to continue as planned
--- NOTE | 2024-08-26 07:06 | PM.OP ---
Operative Report Date of procedure: August 26, 2024 Surgeon: Jace Schmitt MD Brief History: Patient with chest pain, abnormal myocardial perfusion imaging and LV dysfunction by echocardiogram Procedure: Patient underwent left heart catheterization with left and right coronary angiogram and LV angiogram today. The findings are as follows The patient was found to have extremely short left main. The left and descending artery was found with an ostial around 50 to 60% lesion. Left dominant circulation. Minimal intimal irregularities in the mid and distal left and descending artery and circumflex artery. Normal dominant right coronary artery was found to have a high-grade lesion right after the first RV branch. In view of the patient's abnormal echocardiogram at the Perfusion scan, it was thought to be appropriate to consider IFR of the proximal LAD lesion. I discussed and reviewed the cardiac catheterization data with Dr. Null. Dr. Null agreed with this plan and took over further management of this patient.
--- NOTE | 2024-08-26 09:30 | PC.NURSE ---
Fluid orders Dr. Null gave verbal orders to infuse NS at 150ml/hr for 3 hours post cath. See infusion/titration flowsheet. NS infusion continued from bag pulled in cath lab manager for procedure.
--- NOTE | 2024-08-26 09:50 | PC.NURSE ---
TR band Pt arrived from CCL to CPRU 3, small hematoma observed proximal to TR band. 2nd TR band put in place. Radial pulse palpable. Pt placed on bedside cardiac exercise specialist with no reports of pain. Educated on activity and weight restrictions of right arm, verbalized understanding.
--- NOTE | 2024-08-26 15:28 | PC.NURSE ---
TR Band TR Band successfully removed from wrist. Small hematoma still visual. Pt educated again regarding weight/lift restrictions of right wrist. Pt stated understanding. Pt stated he is in no pain.
== END 2024-08-26 15:52 | disposition home or self-care (01) ==
PROVIDERS: Internal Medicine Cardiovascular Disease; PCP Family Medicine; Visit Provider Internal Medicine Cardiovascular Disease
DX: I25.10 Atherosclerotic heart disease of native coronary artery without angina pectoris (principal); Z79.82 Long term (current) use of aspirin; E66.01 Morbid (severe) obesity due to excess calories; E03.9 Hypothyroidism, unspecified; N40.0 Benign prostatic hyperplasia without lower urinary tract symptoms; M79.89 Other specified soft tissue disorders; E78.2 Mixed hyperlipidemia; E11.9 Type 2 diabetes mellitus without complications
CPT/HCPCS: 36415; 80048; 85347; 92978; 93458; 93571; 96374; 99152; 99153; C1753; C1769; C1887; C1894; J1644; J2250; J3010; J3490; J7030; Q0163; Q9967

== ENCOUNTER → 2024-08-29 14:49 | Outpatient (BNVA) | payer MEDICARE, SELFPAY | PROVIDERS: PCP Family Medicine; Visit Provider Nurse Practitioner Family | DX: R22.9 Localized swelling, mass and lump, unspecified (principal) | CPT/HCPCS: 99214 ==

== ENCOUNTER 2024-09-12 08:10 | Outpatient (CLI) | payer MEDICARE, SELFPAY ==
--- NOTE | 2024-09-12 08:45 | USR_ITS ---
PROCEDURE INFORMATION: Exam: US Duplex Right Upper Extremity Arteries Exam date and time: 09/12/2024 8:34 AM Age: 74 years old Clinical indication: Pain; Arm, lower; Right; Prior surgery; Surgery date: 3-7 days post-operative; Surgery type: Post cath; Additional info: R/O psudoaneurysm S/P right radial heart cath. TECHNIQUE: Imaging protocol: Right Real-time ultrasound scan of the arteries of the right upper extremity with 2-D cook scale, color Doppler flow and spectral waveform analysis. COMPARISON: No relevant prior studies available. FINDINGS: Right subclavian artery: No occlusion or significant stenosis. Normal waveform. Right axillary artery: No occlusion or significant stenosis. Normal waveform. Right brachial artery: No occlusion or significant stenosis. Normal waveform. Right radial artery: No occlusion or significant stenosis. Normal waveform. Right ulnar artery: No occlusion or significant stenosis. Normal waveform. US/[place] [id number] IMPRESSION: The area of palpable abnormality appears to represent a small hematoma. No evidence of pseudoaneurysm.
== END 2024-09-12 08:11 | disposition home or self-care (01) ==
PROVIDERS: PCP Family Medicine; Visit Provider Nurse Practitioner Family
DX: I73.9 Peripheral vascular disease, unspecified (principal); R93.89 Abnormal findings on diagnostic imaging of other specified body structures; I10 Essential (primary) hypertension; T14.8XXA Other injury of unspecified body region, initial encounter; X58.XXXA Exposure to other specified factors, initial encounter
CPT/HCPCS: 93931; 99213

== ENCOUNTER → 2024-09-26 11:25 | Outpatient (BNVA) | payer MEDICARE, SELFPAY | PROVIDERS: PCP Family Medicine; Visit Provider Family Medicine | DX: E11.9 Type 2 diabetes mellitus without complications (principal); E03.9 Hypothyroidism, unspecified | CPT/HCPCS: 80053; 83036; 84443 ==

== ENCOUNTER → 2024-10-03 08:45 | Outpatient (BNVA) | payer MEDICARE, SELFPAY | PROVIDERS: PCP Family Medicine; Referring Provider Family Medicine; Visit Provider Student in an Organized Health Care Education/Training Program | DX: K80.20 Calculus of gallbladder without cholecystitis without obstruction (principal); Z86.0100 Personal history of colon polyps, unspecified | CPT/HCPCS: 99214 ==

== ENCOUNTER → 2024-12-27 13:30 | Outpatient (BNVA) | payer MEDICARE, SELFPAY | PROVIDERS: PCP Family Medicine; Visit Provider Family Medicine | DX: E11.9 Type 2 diabetes mellitus without complications (principal) | CPT/HCPCS: 83036 ==

== ENCOUNTER → 2025-02-20 09:53 | Outpatient (BNVA) | payer MEDICARE, SELFPAY | PROVIDERS: PCP Family Medicine; Visit Provider Nurse Practitioner Family | DX: I73.9 Peripheral vascular disease, unspecified (principal); I10 Essential (primary) hypertension; I49.9 Cardiac arrhythmia, unspecified; E78.2 Mixed hyperlipidemia; T14.8XXA Other injury of unspecified body region, initial encounter; Y99.9 Unspecified external cause status; Z79.82 Long term (current) use of aspirin | CPT/HCPCS: 36415; 80048; 85025; 93005; 99213 ==

== ENCOUNTER → 2025-04-06 08:52 | Outpatient (BNVA) | payer MEDICARE, SELFPAY | PROVIDERS: PCP Family Medicine; Referring Provider Family Medicine; Visit Provider Student in an Organized Health Care Education/Training Program | DX: K80.20 Calculus of gallbladder without cholecystitis without obstruction (principal); Z86.0100 Personal history of colon polyps, unspecified; Z12.11 Encounter for screening for malignant neoplasm of colon | CPT/HCPCS: 99214 ==

== ENCOUNTER → 2025-05-29 09:24 | Outpatient (BNVA) | payer MEDICARE, SELFPAY | PROVIDERS: PCP Family Medicine; Visit Provider Family Medicine | DX: I10 Essential (primary) hypertension (principal); E11.9 Type 2 diabetes mellitus without complications; E03.9 Hypothyroidism, unspecified; E66.01 Morbid (severe) obesity due to excess calories | CPT/HCPCS: 80053; 80061; 83036; 84443 ==